=== PATIENT | male | born 1960 | race Caucasian/White ===

== ENCOUNTER 2017-01-01 10:20 | Inpatient (IN) | payer OTHER ==
[~2017-01-01] VITALS: Ht 188 cm; Wt 98.9 kg
[~2017-01-01 10:20] MED LIST: ANIMAL SHAPES1 EAC2 PO; ASPIR 8181 MG PO; ATROVENT HFA12.9 GM INH; CAPTOPRIL25 MG PO; COREG 3.125M3.125 MG PO; DOXYCYCLINE HY100 MG PO; FLEXERIL 10 MG10 MG PO; ISORDIL TAB 3030 MG PO; LEVEMIR100 UNIT/1 SQ; LOPRESSOR 25 MG25 MG PO; LORCET HD 10-31 EACH PO; METOPROLOL TART25 MG PO; MUCINEX600 MG PO; NOVOLIN 70100 UNIT/1 SQ; NOVOLOG FL100 UNIT/1 SQ; PLAVIX 75 MG TA75 MG PO; PREDNISONE 20 M20 MG PO; PREDNISONE20 MG PO; SYMBICORT 16010.2 GM INH; SYNTHROID175 MCG PO; TYLENOL 325MG325 MG PO; VENTOLIN/PROVE0.5 ML INH; [UNRECOGNIZED DRUG - CODE] SQ; [UNRECOGNIZED DRUG - CODE] SQ
[2017-01-01 11:43] LABS: HEMOGLOBIN 12.2 gm/dl (14.0-17.5); RED BLOOD COUNT 4.33 M/UL (4.20-5.50); WHITE BLOOD COUNT 17.2 K/UL (4.5-11.0)
[2017-01-01 12:05] LABS: BUN/CREATININE RATIO 20 (0-10)
[2017-01-02 04:37] LABS: HEMOGLOBIN 10.9 gm/dl (14.0-17.5); RED BLOOD COUNT 3.91 M/UL (4.20-5.50)
[2017-01-02 04:38] LABS: WHITE BLOOD COUNT 11.9 K/UL (4.5-11.0)
[2017-01-02 04:56] LABS: BUN/CREATININE RATIO 17 (0-10)
[2017-01-03 03:56] LABS: HEMOGLOBIN 11.1 gm/dl (14.0-17.5); RED BLOOD COUNT 3.93 M/UL (4.20-5.50); WHITE BLOOD COUNT 10.6 K/UL (4.5-11.0)
[2017-01-03 04:22] LABS: BUN/CREATININE RATIO 10 (0-10)
[2017-01-03] MEDS ORDERED: PROTONIX40 MG PO (17:18)
[2017-01-03] MEDS ORDERED: LEVEMIR100 UNIT/1 SQ (17:22)
[2017-01-03] MEDS ORDERED: IMDUR ER TAB 3030 MG PO (17:22)
[2017-01-03] MEDS ORDERED: SYNTHROID175 MCG PO (17:24)
[2017-06-01] MEDS ORDERED: ASPIR 8181 MG PO (21:08)
== END 2017-01-03 17:55 | disposition home or self-care (01) | DRG 641 ==
LOC: ER1 10:20 → CCU 17:09 → ZEROF 17:09 → PROG CARE 17:09 → M/S 20:16 → CCU 21:45 → PROG CARE 01-02 15:31
PROVIDERS: Emergency Medicine; ADMIT Internal Medicine
DX: E86.0 Dehydration (principal); K29.90 Gastroduodenitis, unspecified, without bleeding; R10.13 Epigastric pain; E87.2 Acidosis; I27.2 Other secondary pulmonary hypertension; M06.9 Rheumatoid arthritis, unspecified; J44.9 Chronic obstructive pulmonary disease, unspecified; E03.9 Hypothyroidism, unspecified; E11.9 Type 2 diabetes mellitus without complications; I25.10 Atherosclerotic heart disease of native coronary artery without angina pectoris; F41.9 Anxiety disorder, unspecified; N20.0 Calculus of kidney; E66.9 Obesity, unspecified; Z68.28 Body mass index [BMI] 28.0-28.9, adult; I25.2 Old myocardial infarction; Z87.891 Personal history of nicotine dependence; Z95.5 Presence of coronary angioplasty implant and graft; Z79.01 Long term (current) use of anticoagulants; Z79.4 Long term (current) use of insulin; Z79.52 Long term (current) use of systemic steroids; Z79.899 Other long term (current) drug therapy; Z79.891 Long term (current) use of opiate analgesic; Z83.3 Family history of diabetes mellitus; Z82.49 Family history of ischemic heart disease and other diseases of the circulatory system; Z96.653 Presence of artificial knee joint, bilateral; Z96.643 Presence of artificial hip joint, bilateral
CPT/HCPCS: ECHO; 36415; 71010; 71275; 80053; 81001; 82009; 82150; 82550; 82553; 82962; 83036; 83605; 83690; 83874; 83880; 84439; 84443; 84484; 85025; 85027; 85379; 85610; 87040; 87086; 93005; 93306; 94640; 94664; 96361; 96365; 96375; 99291; C9113; J0692; J0713; J1815; J2270; J2405; J3370; J7030; J7050; Q9962

== ENCOUNTER 2017-02-19 10:23 | Emergency (ER) | payer OTHER ==
[~2017-02-19 10:23] MED LIST changes: +IMDUR ER TAB 3030 MG PO; +PROTONIX40 MG PO
[2017-06-01] MEDS ORDERED: ASPIR 8181 MG PO (21:08)
== END 2017-02-19 12:30 | disposition home or self-care (01) ==
LOC: ER1 10:23
DX: S39.012A Strain of muscle, fascia and tendon of lower back, initial encounter (principal); I25.10 Atherosclerotic heart disease of native coronary artery without angina pectoris; E11.9 Type 2 diabetes mellitus without complications; I10 Essential (primary) hypertension; Z87.891 Personal history of nicotine dependence; X50.1XXA Overexertion from prolonged static or awkward postures, initial encounter; Y92.009 Unspecified place in unspecified non-institutional (private) residence as the place of occurrence of the external cause
CPT/HCPCS: 72072; 72100; 82962; 96372; 99283; J1885; J3360

== ENCOUNTER 2017-02-23 10:08 | Inpatient (IN) | payer OTHER ==
[~2017-02-23] VITALS: Ht 188 cm; Wt 98.4 kg
[2017-02-23 13:50] LABS: HEMOGLOBIN 10.4 gm/dl (14.0-17.5); RED BLOOD COUNT 3.75 M/UL (4.20-5.50); WHITE BLOOD COUNT 10.1 K/UL (4.5-11.0)
[2017-02-23 14:06] LABS: BUN/CREATININE RATIO 18 (0-10)
[2017-02-23] MEDS ORDERED: IBUPROFEN800 MG PO (14:48)
[2017-02-24 05:22] LABS: HEMOGLOBIN 10.5 gm/dl (14.0-17.5); RED BLOOD COUNT 3.81 M/UL (4.20-5.50); WHITE BLOOD COUNT 8.3 K/UL (4.5-11.0)
[2017-02-24 05:38] LABS: BUN/CREATININE RATIO 17 (0-10)
[2017-02-25 05:56] LABS: HEMOGLOBIN 10.5 gm/dl (14.0-17.5); RED BLOOD COUNT 3.82 M/UL (4.20-5.50)
[2017-02-25 06:30] LABS: BUN/CREATININE RATIO 18 (0-10)
[2017-02-26] MEDS ORDERED: SENOKOT-S TABL1 EACH PO (14:08)
[2017-02-26] MEDS ORDERED: PERCOCET 10-321 EACH PO (14:08)
[2017-02-26] MEDS ORDERED: OXYCONTIN20 MG PO (14:09)
[2017-06-01] MEDS ORDERED: ASPIR 8181 MG PO (21:08)
== END 2017-02-26 14:35 | disposition home or self-care (01) | DRG 552 ==
LOC: ER1 10:08 → MED SURG 4 15:56 → ZEROF 15:56 → MED SURG 4 19:45
PROVIDERS: Physician Assistant; ADMIT Internal Medicine
DX: M54.6 Pain in thoracic spine (principal); M48.54XA Collapsed vertebra, not elsewhere classified, thoracic region, initial encounter for fracture; M48.56XA Collapsed vertebra, not elsewhere classified, lumbar region, initial encounter for fracture; M48.57XA Collapsed vertebra, not elsewhere classified, lumbosacral region, initial encounter for fracture; G89.29 Other chronic pain; M54.5 Low back pain; M48.04 Spinal stenosis, thoracic region; M48.06 Spinal stenosis, lumbar region; J44.9 Chronic obstructive pulmonary disease, unspecified; I25.10 Atherosclerotic heart disease of native coronary artery without angina pectoris; I10 Essential (primary) hypertension; E78.5 Hyperlipidemia, unspecified; E03.9 Hypothyroidism, unspecified; M06.9 Rheumatoid arthritis, unspecified; E11.9 Type 2 diabetes mellitus without complications; I27.2 Other secondary pulmonary hypertension; Z87.891 Personal history of nicotine dependence; Z95.5 Presence of coronary angioplasty implant and graft; Z87.311 Personal history of (healed) other pathological fracture; Z96.643 Presence of artificial hip joint, bilateral; Z96.653 Presence of artificial knee joint, bilateral; Z79.1 Long term (current) use of non-steroidal anti-inflammatories (NSAID); Z79.4 Long term (current) use of insulin; Z79.51 Long term (current) use of inhaled steroids; Z79.899 Other long term (current) drug therapy; Z80.3 Family history of malignant neoplasm of breast; Z82.61 Family history of arthritis; Z84.1 Family history of disorders of kidney and ureter
CPT/HCPCS: 36415; 72128; 72131; 78315; 80048; 80053; 82962; 85025; 85027; 94640; 94664; 96372; 96374; 96375; 96376; 99285; A9503; J1650; J1815; J2270; J2405; J7030

== ENCOUNTER 2017-03-01 09:09 | Inpatient (IN) | payer OTHER ==
[~2017-03-01] VITALS: Ht 188 cm; Wt 98.4 kg
[~2017-03-01 09:09] MED LIST changes: +IBUPROFEN800 MG PO; +OXYCONTIN20 MG PO; +PERCOCET 10-321 EACH PO; +SENOKOT-S TABL1 EACH PO
[2017-03-01 09:38] LABS: HEMOGLOBIN 10.5 gm/dl (14.0-17.5); RED BLOOD COUNT 3.78 M/UL (4.20-5.50); WHITE BLOOD COUNT 11.4 K/UL (4.5-11.0)
[2017-03-01 10:02] LABS: BUN/CREATININE RATIO 17 (0-10)
[2017-03-01] MEDS ORDERED: VITAMIN B-1000 MCG/M SC (14:50)
[2017-03-02 04:08] LABS: HEMOGLOBIN 10.7 gm/dl (14.0-17.5); RED BLOOD COUNT 3.88 M/UL (4.20-5.50)
[2017-03-02 04:09] LABS: WHITE BLOOD COUNT 7.2 K/UL (4.5-11.0)
[2017-03-02 04:30] LABS: BUN/CREATININE RATIO 25 (0-10)
[2017-03-03 08:50] LABS: HEMOGLOBIN 10.9 gm/dl (14.0-17.5); RED BLOOD COUNT 3.94 M/UL (4.20-5.50)
[2017-03-03 08:51] LABS: WHITE BLOOD COUNT 14.6 K/UL (4.5-11.0)
[2017-03-03 09:06] LABS: BUN/CREATININE RATIO 26 (0-10)
[2017-03-04 04:28] LABS: HEMOGLOBIN 8.6 gm/dl (14.0-17.5); RED BLOOD COUNT 3.14 M/UL (4.20-5.50); WHITE BLOOD COUNT 10.6 K/UL (4.5-11.0)
[2017-03-04 04:51] LABS: BUN/CREATININE RATIO 26 (0-10)
[2017-03-05 04:57] LABS: HEMOGLOBIN 9.5 gm/dl (14.0-17.5); WHITE BLOOD COUNT 10.1 K/UL (4.5-11.0)
[2017-03-05 05:01] LABS: RED BLOOD COUNT 3.52 M/UL (4.20-5.50)
[2017-03-05 05:19] LABS: BUN/CREATININE RATIO 28 (0-10)
[2017-03-06 03:43] LABS: RED BLOOD COUNT 3.64 M/UL (4.20-5.50); WHITE BLOOD COUNT 10.1 K/UL (4.5-11.0)
[2017-03-06 04:01] LABS: BUN/CREATININE RATIO 33 (0-10)
--- NOTE | 2017-03-06 17:50 | NUR ---
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
[2017-03-07 04:13] LABS: HEMOGLOBIN 9.7 gm/dl (14.0-17.5); RED BLOOD COUNT 3.57 M/UL (4.20-5.50)
[2017-03-07 04:22] LABS: BUN/CREATININE RATIO 27 (0-10)
[2017-03-08 05:35] LABS: BUN/CREATININE RATIO 23 (0-10)
[2017-03-09] MEDS ORDERED: DULERA 100 MCG8.8 GM INH (11:16)
[2017-03-09] MEDS ORDERED: ELIQUIS5 MG PO (11:18)
[2017-03-09] MEDS ORDERED: NOVOLOG FL100 UNIT/1 SQ (11:19)
[2017-06-01] MEDS ORDERED: ASPIR 8181 MG PO (21:08)
== END 2017-03-09 09:00 | disposition home health service (06) | DRG 981 ==
LOC: ER1 09:09 → ZEROF 11:33 → CCU 11:33 → MED SURG 4 11:33 → CCU 03-03 16:57 → MED SURG 4 03-06 17:41
PROVIDERS: Family Medicine; Internal Medicine; Internal Medicine Critical Care Medicine; Orthopaedic Surgery; Physician Assistant; ADMIT Emergency Medicine
PROC: 0QS03ZZ Reposition Lumbar Vertebra, Percutaneous Approach (ICD-10-PCS; 2017-03-03)
PROC: 0QU03JZ Supplement Lumbar Vertebra with Synthetic Substitute, Percutaneous Approach (ICD-10-PCS; 2017-03-03)
PROC: 0PU43JZ Supplement Thoracic Vertebra with Synthetic Substitute, Percutaneous Approach (ICD-10-PCS; 2017-03-03)
PROC: 5A1935Z Respiratory Ventilation, Less than 24 Consecutive Hours (ICD-10-PCS; 2017-03-03)
PROC: 0PS43ZZ Reposition Thoracic Vertebra, Percutaneous Approach (ICD-10-PCS; principal; 2017-03-03 11:45)
PROC: 5A09357 Assistance with Respiratory Ventilation, Less than 24 Consecutive Hours, Continuous Positive Airway Pressure (ICD-10-PCS; 2017-03-04)
DX: J96.21 Acute and chronic respiratory failure with hypoxia (principal); J18.9 Pneumonia, unspecified organism; G93.49 Other encephalopathy; M48.55XA Collapsed vertebra, not elsewhere classified, thoracolumbar region, initial encounter for fracture; J44.1 Chronic obstructive pulmonary disease with (acute) exacerbation; J44.0 Chronic obstructive pulmonary disease with (acute) lower respiratory infection; E66.2 Morbid (severe) obesity with alveolar hypoventilation; J98.11 Atelectasis; I48.91 Unspecified atrial fibrillation; E11.65 Type 2 diabetes mellitus with hyperglycemia; M06.9 Rheumatoid arthritis, unspecified; D63.8 Anemia in other chronic diseases classified elsewhere; I10 Essential (primary) hypertension; E03.9 Hypothyroidism, unspecified; E78.5 Hyperlipidemia, unspecified; I27.2 Other secondary pulmonary hypertension; I25.10 Atherosclerotic heart disease of native coronary artery without angina pectoris; I70.8 Atherosclerosis of other arteries; R07.9 Chest pain, unspecified; G89.29 Other chronic pain; K59.00 Constipation, unspecified; F41.9 Anxiety disorder, unspecified; Z98.61 Coronary angioplasty status; Z87.891 Personal history of nicotine dependence; Z99.81 Dependence on supplemental oxygen; Z68.27 Body mass index [BMI] 27.0-27.9, adult; Z79.52 Long term (current) use of systemic steroids; Z79.4 Long term (current) use of insulin; Z79.02 Long term (current) use of antithrombotics/antiplatelets; Z79.891 Long term (current) use of opiate analgesic; Z79.82 Long term (current) use of aspirin; Z79.1 Long term (current) use of non-steroidal anti-inflammatories (NSAID); Z79.899 Other long term (current) drug therapy; Z96.643 Presence of artificial hip joint, bilateral; Z96.653 Presence of artificial knee joint, bilateral; Z98.890 Other specified postprocedural states; Z80.3 Family history of malignant neoplasm of breast; Z84.1 Family history of disorders of kidney and ureter; Z82.61 Family history of arthritis
CPT/HCPCS: ECHO; 36415; 36600; 71010; 80048; 80053; 82550; 82553; 82803; 82962; 83735; 83874; 83880; 84484; 85025; 85027; 92610; 93005; 93306; 94002; 94003; 94640; 94660; 94664; 96374; 97110; 97116; 97530; 97535; 99285; J0690; J1100; J1160; J1650; J1940; J2250; J2405; J2710; J2920; J2930; J3486; J7030; J7050; J7120; Q9962; Q9963